=== PATIENT | male | born 1940 | race Caucasian/White ===

== ENCOUNTER 2021-02-25 19:29 | Emergency (ER) | payer MEDICARE ==
[2021-02-25] MEDS ORDERED: LIDOCAINE 1% INJ 10MG/ML (20 ML MDV) SQ ONE (20:31)
--- NOTE | 2021-02-25 20:31 | ED ---
Wound/Laceration HPI - General Chief Complaint: Wound/Laceration Stated Complaint: Finger lac Time Seen by Provider: 02/25/21 20:31 Source: patient Mode of arrival: ambulatory Limitations: no limitations - History of Present Illness Initial Comments: Anibal 80-year-old [id number] gentleman who presents to the emergency department today for evaluation of a laceration to his right thumb. Patient reports that his had just finished heating up a can of beans for dinner, patient went to put something in the trash and pushed the trash down in the kitchen trashcan to compacted when he lacerated his right thumb. He believes he cut his finger on the lid of the can from the beans. He applied pressure but could not controlled bleeding so came to the ER for evaluation. - Related Data Home Medications Medication Instructions Recorded Confirmed No Known Home Medications 09/24/14 09/24/14 Allergies Allergy/AdvReac Type Severity Reaction Status Date / Time monosodium glutamate Allergy Anaphylaxis Verified 02/25/21 20:28 Review of Systems ROS Statement: Those systems with pertinent positive or pertinent negative responses have been documented in the HPI. ROS Other: All systems not noted in ROS Statement are negative. Past Medical History Past Medical History: Diabetes Mellitus History of Any Multi-Drug Resistant Organisms: None Reported Past Surgical History: Orthopedic Surgery Additional Past Surgical History / Comment(s): lt hip Past Psychological History: No Psychological Hx Reported Smoking Status: Never smoker Past Alcohol Use History: Occasional Past Drug Use History: None Reported General Exam - General Exam Comments Initial Comments: Physical Exam GENERAL: Patient is well-developed and well-nourished. Patient is nontoxic and well-hydrated and is in no distress. HENT: Normocephalic, Atraumatic. EYES: PERRL, EOMI PULMONARY: Unlabored respirations. CARDIOVASCULAR: RRR Warm and well perfused extremities ABDOMEN: Non-distended SKIN: Proximally 2 cm laceration to the lateral surface of the thumb, arterial bleeding noted : Deferred NEUROLOGIC: Alert and oriented Normal speech Normal gait MUSCULOSKELETAL: Moving all extremities with no apparent injury PSYCHIATRIC: No SI/HI Limitations: no limitations Course Vital Signs 02/25/21 20:24 Temperature 98.1 F Pulse Rate 109 H Respiratory 20 Rate Blood Pressure 128/83 O2 Sat by Pulse 100 Oximetry Procedures - Laceration Laceration #1 Consent Obtained: verbal consent Indication: laceration Site: hand Size (cm): 2 Description: linear Depth: arterial injury Anesthetic Used: lidocaine 1% Anesthesia Technique: local infiltration Pre-repair: wound explored, irrigated extensively Type of Sutures: nylon Size of Sutures: 4-0 Number of Sutures: 6 Technique: simple, interrupted Patient Tolerated Procedure: well Medical Decision Making - Medical Decision Making Patient seen and evaluated history is obtained from the patient Patient noted to have superficial arterial bleeder, bleeding was decreased with direct pressure, vessel was ligated with a [id number] suture Wound was sutured There is no bleeding after repair Tdap orderd, patient discharged home in stable condition Disposition Clinical Impression: Laceration Disposition: HOME SELF-CARE Condition: Stable Instructions (If sedation given, give patient instructions): Care For Your Stitches (DC) Additional Instructions: Return to the ER in one week for suture removal Is patient prescribed a controlled substance at d/c from ED?: No Referrals: Marcellus Elliott MD [Primary Care Provider] - 1-2 days
[2021-02-25] MEDS ORDERED: DIPH,PERTUS(ACELL)TETVAC-LF 0.5 ML VIAL IM ONE (21:18)
[2021-02-25 21:20] VITALS: BP 126/76; PULSE 90; RESP 18; TEMP 98
== END 2021-02-25 21:23 | disposition home or self-care (01) ==
LOC: EC 19:29
DX: S61.011A Laceration without foreign body of right thumb without damage to nail, initial encounter (principal); E11.9 Type 2 diabetes mellitus without complications; W26.8XXA Contact with other sharp object(s), not elsewhere classified, initial encounter; Y92.000 Kitchen of unspecified non-institutional (private) residence as the place of occurrence of the external cause
CPT/HCPCS: 99282; 12001; J2001

== ENCOUNTER 2024-02-06 09:31 | Emergency (ER) | payer MEDICARE ==
[2024-02-06] MEDS: Acetaminophen-Codeine 300-30mg TAB PO STA (10:15)
[2024-02-06] MEDS: KETOROLAC 15 MG/ML 1 ML VIAL IM STA (10:16)
[2024-02-06] MEDS: ORPHENADRINE 30 MG/ML 2 ML VIAL IM STA (10:16)
[2024-02-06 11:13] VITALS: RESP 18; TEMP 98
--- NOTE | 2024-02-06 11:37 | ED ---
Upper Extremity HPI - General Chief Complaint: Extremity Injury, Upper Stated Complaint: R shoulder injury Time Seen by Provider: 02/06/24 09:46 Source: patient, family, RN notes reviewed Mode of arrival: ambulatory Limitations: no limitations - History of Present Illness Initial Comments: This is an 83-year-old male who presents to the emergency department for right shoulder pain. States that 2 days ago he was walking in his garage when he tripped on the hose, causing him to lose his balance and fall. When he fell his right shoulder went into the garage door. He has since had increasing pain over the right shoulder. He is taking aspirin without significant relief in symptoms. Also having difficulty fully raising the arm. Denies hitting his head or sustaining any other injuries. MD Complaint: Injury to:: right, shoulder - Related Data Home Medications Medication Instructions Recorded Confirmed Gabapentin [Neurontin] 100 mg PO HS 06/13/23 06/13/23 Meclizine [Antivert] 12.5 mg PO TID PRN 06/13/23 06/13/23 Previous Rx's Medication Instructions Recorded Aspirin 81 mg PO DAILY #60 tab 06/16/23 Atorvastatin [Lipitor] 40 mg PO HS #60 tab 06/16/23 Clopidogrel [Plavix] 75 mg PO DAILY #19 tab 06/16/23 Meloxicam [Mobic] 7.5 mg PO DAILY PRN #20 tab 02/06/24 methocarbamoL [Robaxin-750] 1,500 mg PO TID PRN #30 tab 02/06/24 Allergies Allergy/AdvReac Type Severity Reaction Status Date / Time monosodium glutamate Allergy Anaphylaxis Verified 02/06/24 09:43 Review of Systems ROS Statement: Those systems with pertinent positive or pertinent negative responses have been documented in the HPI. ROS Other: All systems not noted in ROS Statement are negative. Past Medical History Past Medical History: Diabetes Mellitus Additional Past Medical History / Comment(s): Neuropathy in hands and feet. History of Any Multi-Drug Resistant Organisms: None Reported Past Surgical History: Orthopedic Surgery Additional Past Surgical History / Comment(s): lt hip Past Anesthesia/Blood Transfusion Reactions: No Reported Reaction Past Psychological History: No Psychological Hx Reported Smoking Status: Never smoker Past Alcohol Use History: None Reported Past Drug Use History: None Reported General Exam Limitations: no limitations General appearance: alert, in no apparent distress Head exam: Present: atraumatic, normocephalic, normal inspection Respiratory exam: Present: normal lung sounds bilaterally. Absent: respiratory distress, wheezes, rales, rhonchi, stridor Cardiovascular Exam: Present: regular rate, normal rhythm, normal heart sounds. Absent: systolic murmur, diastolic murmur, rubs, gallop, clicks Extremities exam: Present: other (Tenderness palpation over the right shoulder. Range of motion limited by pain. No deformities. 2+ radial pulses.) Neurological exam: Present: alert, oriented X3, CN II-XII intact Psychiatric exam: Present: normal affect, normal mood Skin exam: Present: warm, dry, intact, normal color. Absent: rash Course Vital Signs 02/06/24 02/06/24 02/06/24 09:41 11:42 13:27 Temperature 98 F 98 F 98 F Pulse Rate 90 84 86 Respiratory 18 18 18 Rate Blood Pressure 112/70 111/81 115/72 O2 Sat by Pulse 98 98 98 Oximetry Medical Decision Making - Medical Decision Making This is an 83 year old male who presents to the emergency department for right shoulder pain. Was pt. sent in by a medical professional or institution? @ -No Did you speak to anyone other than the patient for history? @ -No Did you review nursing and triage notes? @ -Yes, and I agree, it is accurate with regards to the patient's symptoms. Were old charts reviewed? @ -No Differential Diagnosis? @ -Differential Musculoskeletal: Muscular strain, contusion, ligament sprain, fracture, arthritis, septic arthritis, bursitis, cellulitis, muscle spasm, nerve compression, DVT, arterial occlusion, herpes zoster, electrolyte abnormality, tumor.... This is not meant to be in all inclusive list EKG interpreted by me (3pts min.)? @ -Not obtained X-rays interpreted by me (1pt min.)? @ -X-ray of the right shoulder obtained. My interpretation identifies no acute fractures. CT interpreted by me (1pt min.)? @ -Not obtained U/S interpreted by me (1pt. min.)? @ -Not obtained What testing was considered but not performed? (CT, X-rays, U/S, labs)? Why? @ -None What meds were considered but not given? Why? @ -None Did you discuss the management of the patient with other professionals? @ -No Did you reconcile home meds? @ -No Was smoking cessation discussed for >3mins.? @ -No Was critical care preformed (if so, how long)? @ -No Were there social determinants of health that impacted care today? How? (Homelessness, low income, unemployed, alcoholism, drug addiction, transportation, low edu. Level, literacy, decrease access to med. care, fpc, rehab)? @ -No Was there de-escalation of care discussed even if they declined? (Discuss DNR or withdrawal of care, Hospice)? @ -No What co-morbidities impacted this encounter? (DM, HTN, Smoking, COPD, CAD, Cancer, CVA, Hep., AIDS, mental health diagnosis, sleep apnea, morbid obesity)? @ -DM Was patient admitted / discharged? @ -Discharged. X-ray of the right shoulder obtained revealing no acute process. Symptoms treated in the emergency department with improvement in pain. Prescription for Mobic and Robaxin provided with dosing instructions reviewed for additional symptomatic management. Advised follow-up with his primary care provider for reevaluation. Undiagnosed new problem with uncertain prognosis? @ -None Drug Therapy requiring intensive monitoring for toxicity (Heparin, Nitro, Insulin, Cardizem)? @ -None Were any procedures done? @ -None Diagnosis/symptom? @ -Fall, right shoulder pain Acute, or Chronic, or Acute on Chronic? @ -Acute Uncomplicated (without systemic symptoms) or Complicated (systemic symptoms)? @ -Uncomplicated Side effects of treatment? @ -None Exacerbation, Progression, or Severe Exacerbation] @ -Not applicable Poses a threat to life or bodily function? @ -No Return precautions reviewed in depth, the patient is instructed to return to the emergency department with any new, worsening, or concerning symptoms. Patient verbalized understanding. This case was discussed in detail with the attending ED physician, Dr. gO. Presentation, findings, and treatment plan discussed in detail as well. - Radiology Data Radiology results: report reviewed, image reviewed Disposition Clinical Impression: Fall, Right shoulder pain Disposition: HOME SELF-CARE Instructions (If sedation given, give patient instructions): Rotator Cuff Injury (ED), Shoulder Pain (ED) Additional Instructions: Return to the emergency department with any new, worsening, or concerning symptoms. Take the Mobic once daily for pain relief. If one tablet is not effective, you can increase this to 2 tablets daily. Do not take any other anti-inflammatories such as ibuprofen with this. You may take it with Tylenol. Take the Robaxin as 1 to 2 tablets up to 3-4 times daily for additional pain relief. Be aware that this may make you drowsy. Follow up with your primary care provider in 1-2 days. Prescriptions: Meloxicam [Mobic] 7.5 mg PO DAILY PRN #20 tab PRN Reason: Pain methocarbamoL [Robaxin-750] 1,500 mg PO TID PRN #30 tab PRN Reason: Pain Is patient prescribed a controlled substance at d/c from ED?: No Referrals: Marcellus Elliott DO [Primary Care Provider] - 1-2 days Time of Disposition: 12:45
--- NOTE | 2024-02-06 12:07 | XR ---
EXAMINATION TYPE: XR shoulder complete RT DATE OF EXAM: 02/06/2024 10:43 AM CLINICAL INDICATION:Male, 83 years old with history of Fall; COMPARISON: None TECHNIQUE: XR shoulder complete RT; examined in AP, internally rotated and scapular Y projections. FINDINGS: No evidence of acute osseous pathology, joint dislocation, or soft tissue swelling. The remaining po rtions of the visualized chest are unremarkable. IMPRESSION: No acute osseous pathology.
[2024-02-06] MEDS: ACET/COD 300 MG/30 MG STARTER PACK 6 TAB BTL PO STA (12:53)
[2024-02-06 13:38] VITALS: BP 115/72; PULSE 86
== END 2024-02-06 13:28 | disposition home or self-care (01) ==
LOC: EC 09:31
DX: M25.511 Pain in right shoulder (principal); W01.0XXA Fall on same level from slipping, tripping and stumbling without subsequent striking against object, initial encounter; Y92.59 Other trade areas as the place of occurrence of the external cause
CPT/HCPCS: 99283; 96372 ×2; 73030; J2360; J1885